=== PATIENT | male | born 1985 | race African-American/Black ===

== ENCOUNTER 2019-08-11 12:35 | Emergency (ER) | payer SELFPAY ==
[~2019-08-11] VITALS: Ht 185.4 cm; Wt 79.0 kg
--- NOTE | 2019-08-11 12:45 | PHYS DOC ---
Adult General Chief Complaint Chief Complaint: SORE THROAT HPI HPI Patient is a 33 year old -[place] male who presents with complaint of sore throat since yesterday. He also admits to some chills denies cough, shortness of breath, chest pain. Took an allergy medication prior to arrival without relief. No sick contacts recent travel. Review of Systems Review of Systems All other systems were reviewed and found to be within normal limits, except as documented in this note. Allergies Allergies Allergies Coded Allergies Type Severity Reaction Last Updated Verified No Known Drug Allergies 08/11/19 No Physical Exam Physical Exam Constitutional: Well developed, well nourished, no acute distress, non-toxic appearance. [] HENT: Normocephalic, atraumatic, bilateral external ears normal, oropharynx moist, no oral exudates, nose normal. Moderate posterior pharynx erythema without exudate. Eyes: PERRLA, EOMI, conjunctiva normal, no discharge. [] Neck: Normal range of motion, no tenderness, supple, no stridor. No lymphadenopathy. Cardiovascular:Heart rate regular rhythm, no murmur [] Lungs & Thorax: Bilateral breath sounds clear to auscultation [] Skin: Warm, dry, no erythema, no rash. [] Back: No tenderness, no CVA tenderness. [] Extremities: No tenderness, no cyanosis, no clubbing, ROM intact, no edema. [] Neurologic: Alert and oriented X 3, normal motor function, normal sensory function, no focal deficits noted. [] Current Patient Data Vital Signs Vital Signs Date Time Temp Pulse Resp B/P (MAP) Pulse Ox O2 Delivery O2 Flow Rate FiO2 08/11/19 12:46 97.9 77 18 133/65 (87) 97 Room Air 97.9 EKG EKG [] Radiology/Procedures Radiology/Procedures [] Course & Med Decision Making Course & Med Decision Making Pertinent Labs and Imaging studies reviewed. (See chart for details) 1245: Patient seen for sore throat. Will check for strep Dragon Disclaimer Dragon Disclaimer This electronic medical record was generated, in whole or in part, using a voice recognition dictation system. Departure Departure Impression: Primary Impression: Strep pharyngitis Disposition: 01 HOME, SELF-CARE Condition: STABLE Patient Instructions: Strep Throat Additional Instructions: You may use tylenol and motrin for fever and body aches. Scripts Amoxicillin (AMOXICILLIN) 500 Mg Capsule 1 CAP PO Q8HRS for infection, #30 CAP Prov: SAMARIA MARTINEZ DO 08/11/19 SAMARIA MARTINEZ DO Aug 11, 2019 12:45
[2019-08-11 12:46] VITALS: BP 133/65
[2019-08-11] MEDS ORDERED: AMOX500C PO (13:09)
== END 2019-08-11 13:30 | disposition home or self-care (01) ==
LOC: ER 12:35
DX: J02.0 Streptococcal pharyngitis (principal); B96.89 Other specified bacterial agents as the cause of diseases classified elsewhere; R68.83 Chills (without fever); L53.9 Erythematous condition, unspecified
CPT/HCPCS: 87880; 99283

== ENCOUNTER 2020-12-04 01:05 | Emergency (ER) | payer SELFPAY ==
[~2020-12-04] VITALS: Ht 185.4 cm; Wt 81.4 kg
[~2020-12-04 01:05] MED LIST: AMOX500C PO
[2020-12-04 01:10] VITALS: BP 148/70
[2020-12-04] MEDS ORDERED: AMOX500T PO (01:53)
--- NOTE | 2020-12-04 01:54 | PHYS DOC ---
Past Medical History Past Medical History: No Pertinent History Past Surgical History: Other Additional Past Surgical Histo: L ear surgery Smoking Status: Current Every Day Smoker Alcohol Use: Occasionally General Adult EDM: Chief Complaint: MULTIPLE COMPLAINTS HPI: HPI: Patient is a 35 year [id number] male presents with a chief complaint of sore throat and right ear pain. Patient states symptoms been ongoing for 1 day progressive becoming worse. Patient states he has pain with swallowing. Patient denies any fever chills chest pain nausea vomit Patient has not received his Covid vaccination. Review of Systems: Review of Systems: Constitutional: Denies fever or chills. [] Eyes: Denies change in visual acuity. [] HENT: Denies nasal congestion Positive sore throat. [Positive ear pain] Respiratory: Denies cough or shortness of breath. [] Cardiovascular: Denies chest pain or edema. [] GI: Denies abdominal pain, nausea, vomiting, bloody stools or diarrhea. [] : Denies dysuria. [] Musculoskeletal: Denies back pain or joint pain. [] Integument: Denies rash. [] Neurologic: Denies headache, focal weakness or sensory changes. [] Endocrine: Denies polyuria or polydipsia. [] Lymphatic: Denies swollen glands. [] Psychiatric: Denies depression or anxiety. [] Heart Score: C/O Chest Pain: N/A Risk Factors: Risk Factors: DM, Current or recent (<one month) smoker, HTN, HLP, family history of CAD, obesity. Risk Scores: Score 0 - 3: 2.5% MACE over next 6 weeks - Discharge Home Score 4 - 6: 20.3% MACE over next 6 weeks - Admit for Clinical Observation Score 7 - 10: 72.7% MACE over next 6 weeks - Early Invasive Strategies Current Medications: Current Medications Medications (Trade) Dose Ordered Sig/Winnie Start Time Stop Time Status Last Admin Dose Admin Dexamethasone (Decadron) 10 mg 1X ONCE 12/04/20 02:00 12/04/20 02:01 UNV Allergies: Allergies: Allergies Coded Allergies Type Severity Reaction Last Updated Verified No Known Drug Allergies 08/11/19 No Physical Exam: PE: General: alert, no acute distress. Skin: warm, dry and intact. HENT: bilateral external ears normal, oropharynx moist, nose normal. Pharyngeal erythema no exudate no deviation TM erythema on the right Head:: Normocephalic, atraumatic. Neck: Trachea midline. Eyes: EOMI, Normal conjunctiva, No drainage CARDIOVASCULAR: Regular rate and rhythm RESPIRATORY: No respiratory distress Back: Full range of motion. Skin: Warm, dry, no erythema, no rash. MUSCULOSKELETAL: Full range of motion of bilateral upper and lower extremities. GASTROINTESTINAL: Abdomen soft without rebound or guarding. NEUROLOGICAL: Alert and noted to person, place and time. No neurological deficits observed Psychiatric: Cooperative. Normal judgment Current Patient Data: Vital Signs: Vital Signs Date Time Temp Pulse Resp B/P (MAP) Pulse Ox O2 Delivery O2 Flow Rate FiO2 12/04/20 01:10 98.6 88 18 148/70 99 Room Air 98.6 EKG: EKG: [] Radiology/Procedures: Radiology/Procedures: [] Course & Med Decision Making: Course & Med Decision Making Pertinent Labs and Imaging studies reviewed. (See chart for details) [] Treated with a dose of Decadron and amoxicillin. Patient discharged home on amoxicillin. Meggan Disclaimer: Meggan Disclaimer: This electronic medical record was generated, in whole or in part, using a voice recognition dictation system. Departure Departure Impression: Primary Impression: Sore throat Disposition: HOME / SELF CARE / HOMELESS Condition: STABLE Referrals: NO PCP (PCP) Patient Instructions: Sore Throat Scripts Amoxicillin (AMOXICILLIN) 500 Mg Tablet 1 TAB PO BID, #20 TAB Prov: JACQUELYN CORTES DO 12/04/20 JACQUELYN CORTES DO Dec 04, 2020 01:54
[2020-12-04] MEDS ORDERED: AMOXICILLIN 250 MG CAPSULE. ONE (02:05)
[2020-12-04] MEDS ORDERED: AMOXICILLIN 250 MG CAPSULE. PO ONE (02:30)
[2020-12-04] MEDS ORDERED: DEXAMETHASONE 4 MG TABLET PO ONE (02:30)
== END 2020-12-04 02:16 | disposition home or self-care (01) ==
LOC: ER 01:05
DX: J02.9 Acute pharyngitis, unspecified (principal); H92.01 Otalgia, right ear; F17.200 Nicotine dependence, unspecified, uncomplicated
CPT/HCPCS: 99283